=== PATIENT | male | born 1960 | race Caucasian/White ===

== ENCOUNTER 2016-09-12 11:20 | Day surgery (SDC) | payer MEDICARE, OTHER, SELFPAY ==
--- NOTE | ~2016-09-12 | EGD ---
EGD REPORT [facility] [address] [id number] NAME: SHAYLEE CEJA : 58 STATUS : REG [facility]#: [id number] AGE: 56 ADM/REG DATE : 09/12/16 MR#: [id number] REPORT SERV DATE: 09/12/16 DICTATED BY: EVAN JONES DATE: 09/12/16 REPORT STATUS : Draft [facility]ANS[facility]ED BY: [facility] DATE: 09/12/16 Pulmonology Patient Name: Shaylee Ceja Procedure Date: 09/12/2016 3:29 PM Date of : 1960 Attending MD: KEREN JONES MD Procedure Date No Time: 09/12/2016 Procedure: EBUS/NAVIGATION BRONCHOSCOPY Indications: FDG avid right hilar lesion Providers: KEREN JONES MD Referring MD: KIERAN HURD Medicines: Lidocaine 2% 20 mL Complications: No immediate complications Procedure: Pre-Anesthesia Assessment: - A History and Physical has been performed. Patient meds and allergies have been reviewed. The risks and benefits of the procedure and the sedation options and risks were discussed with the patient. All questions were answered and informed consent was obtained. Patient identification and proposed procedure were verified prior to the procedure by the physician and the nurse in the pre-procedure area in the procedure room. Mental Status Examination: alert and oriented. Airway Examination: normal oropharyngeal airway. Respiratory Examination: poor air movement. CV Examination: normal and RRR, no murmurs, no S3 or S4. ASA Grade Assessment: IV - A patient with severe systemic disease that is a constant threat to life. After reviewing the risks and benefits, the patient was deemed in satisfactory condition to undergo the procedure. The anesthesia plan was to use general anesthesia. Immediately prior to administration of medications, the patient was re-assessed for adequacy to receive sedatives. The heart rate, respiratory rate, oxygen saturations, blood pressure, adequacy of pulmonary ventilation, and response to care were monitored throughout the procedure. The physical status of the patient was re-assessed after the procedure. After obtaining informed consent, the Bronchoscope was introduced through the mouth, via the endotracheal tube (the patient was intubated for the procedure) and advanced to the tracheobronchial tree. the BF [id number] was introduced through the mouth, via the endotracheal tube (the patient was intubated for the procedure) and advanced to the tracheobronchial tree. The procedure was accomplished without difficulty. The EGD REPORT [address] [address] NAME: SHAYLEE CEJA : [birth year] STATUS : REG [facility]#: [id number] AGE: 56 ADM/REG DATE : 09/12/16 MR#: [id number] REPORT SERV DATE: 09/12/16 DICTATED BY: EVAN JONES DATE: 09/12/16 REPORT STATUS : Draft TRANSCRIBED BY: [facility] DATE: 09/12/16 patient tolerated the procedure well. Findings: The endotracheal tube is in good position. The visualized portion of the trachea is of normal caliber. The dewayne is sharp. The tracheobronchial tree was examined to at least the first subsegmental level. Patient is status post RUL lobectomy. EBUS TBNA of lymph node level 11L x 4 passes for cytology EBUS TBNA of lymph node level 7 x 4 passes for cytology Right lower lobe FDG nodule x 10 passes for cytology Using SuperDimension Edge catheter 190, peripheral probe EBUS 17s, and fluoroscopy, I performed the following biopsies: Right lower lobe FDG nodule transbronchial needle aspirates x 7 passes for cytology Right lower lobe FDG nodule transbronchial brush biopsy x 1 pass for cytology Right lower lobe FDG nodule transbronchial forcep biopsies x 7 passes for histopathology Bronchoalveolar lavage was performed in the RLL superior basal segment (B6) of the lung and sent for routine cytology. 80 mL of fluid were instilled. 20 mL were returned. The return was blood-tinged and cellular. Impression: Rapid On-Site Evaluation (SALVADOR): Preliminary cytology is POSITIVE for NON SMALL CELL LUNG CANCER, LIKELY ADENOCARCINOMA (final results are pending). Recommendation: - Await test results. - Chest X-ray. - Complete pulmonary function tests. - Refer to/consult with Thoracic Surgery. Dr. Hartman. - Refer to/consult with Oncology. - MRI of the brain with and without contrast Attending Participation: I personally performed the entire procedure. KEREN JONES MD 09/12/2016 5:41 PM This report has been signed electronically. Number of Addenda: 0 Note Initiated On: 09/12/2016 3:29 PM [address] [id number]
--- NOTE | ~2016-09-12 | CN ---
Consultation Report [place] [address] [facility] [place] [address] NAME: SHAYLEE CEJA : 58 STATUS : [facility]#: [id number] AGE: 56 ADM/REG DATE : 09/12/16 MR#: [id number] REPORT SERV DATE: 09/13/16 DICTATED BY: JOURDAN JONES DATE: 09/13/16 REPORT STATUS : Draft TRANSCRIBED BY: MODL DATE: 09/13/16 DATE OF CONSULTATION: Dear Dr. Echols and Dr. Hartman: Thank you for requesting my opinion regarding re-evaluation of Mr. Shaylee Ceja's right hilar mass, raising right hilar abnormalities including an enlarging right-sided FDG-avid nodular opacity and multiple new pulmonary nodules. Mr. Shaylee Ceja is a pleasant 56- year-old gentleman with a significant past medical history of right upper lobe lobectomy for non-small cell lung cancer in [address] Hartman and previous navigation bronchoscopy in 2014, performed by az, which was inconclusive that demonstrated atypical cells, neoplastic versus reactive, who re-presents with a repeat PET-CT scan. PET-CT scan performed on 08/20/2016 demonstrates the previous right upper lobe lobectomy and there were surgical clips in the anterior margin of the right hilum. The right hilar mass, which has been followed, has now increased in size at 24 x 47 mm and it measured 24 x 38 mm on a previous [address] scan on 12/24/2014 and 22 x 39 mm on a PET-CT scan on 07/21/2015. There was a fairly intense focus in the lower portion of the hilar mass, and the tumor seems to be protruding into the bronchus intermedius and encasing the right lower lobe and bronchus. There are at least four new pulmonary nodules. HISTORY OF PRESENT ILLNESS: Mr. Ceja reports no significant changes in his dyspnea, but he does have chronic shortness of breath, well localized to the chest, nonradiating with no significant alleviating or exacerbating factors. PAST MEDICAL HISTORY: 1. Acid reflux disease. 2. COPD. 3. Right upper lobe non-small cell lung cancer, status post lobectomy by Dr. Hartman. 4. Type 2 diabetes. 5. Emphysema. 6. Hyperlipidemia. 7. Hypertension. 8. SHAKILA. 9. Thyroid neoplasm. PAST SURGICAL HISTORY: Colonoscopy in 06/2014, previously lung biopsy in 03/2014, bronchoscopy with biopsy in 01/2014, lung surgery in 2007, and thyroidectomy in 2007. FAMILY HISTORY: Noncontributory. SOCIAL HISTORY: The patient is a previous smoker, who quit in 2007. He denies any significant alcohol or illicit drug abuse. ALLERGIES: NO KNOWN DRUG ALLERGIES. Consultation Report [address] [place]. [address] NAME: SHAYLEE CEJA : 58 STATUS : [facility]#: [id number] AGE: 56 ADM/REG DATE : 09/12/16 MR#: [id number] REPORT SERV DATE: 09/13/16 DICTATED BY: JOURDAN JONES DATE: 09/13/16 REPORT STATUS : Draft TRANSCRIBED BY: ANNE DATE: 09/13/16 HOME MEDICATIONS: Reviewed and located in the paper chart. PHYSICAL EXAMINATION: VITAL SIGNS: Reviewed and located in the paper chart. GENERAL: No acute distress. Able to communicate in full paragraphs at a time. HEENT: Normocephalic and atraumatic. Pupils equal, round, and reactive to light and accommodation. Posterior oropharynx is clear. NECK: No JVD. No LAD. Trachea midline. CARDIOVASCULAR: Regular rate and rhythm. S1 and S2 present. LUNGS: Coarse bilateral breath sounds. Diminished slightly on the right. No end- expiratory wheezes noted. ABDOMEN: Nontender, nondistended, soft. Positive bowel sounds. EXTREMITIES: No clubbing, cyanosis, or edema. SKIN: No new rashes, lesions, or ulcers. PSYCHIATRIC: Alert and oriented x3. Appropriate mood and affect. Appropriate insight and judgment. NEUROLOGIC: 5/5 strength in upper and lower extremities. Cranial nerves 2 through 12 intact. Gait not tested. DTRs not performed. IMAGING: PET-CT scan on 08/20/2016 was personally reviewed by me and I agree with the following interpretation. The patient previously underwent a right upper lobe lobectomy. There are surgical clips in the anterior margin of the right hilum. The right hilar mass has been followed, it has now increased to 24 x 47 mm and it had measured 24 x 38 mm on a previous CT scan. There is a fairly intense FDG focus in the lower portion of the hilar mass. The tumor appears to be protruding into the bronchus intermedius and encasing the right lower lobe and bronchus. The right hilar mass has shown interval enlargement. There has been associated alveolar disease and alveolar-appearing nodules that are behind the hilum, these could be inflammatory, but these could also represent other sites of metastatic disease. This PET-CT scan has been personally reviewed by me and I agree with the above interpretation. ASSESSMENT AND PLAN: Mr. Shaylee Ceja is a pleasant 56-year-old gentleman with a significant past medical history of previous non-small cell lung cancer, status post right upper lobe lobectomy by Dr. Hartman in 2007, previous bronchoscopic biopsy that demonstrated atypical cells, neoplastic versus reactive, who returns with a repeat surveillance PET-CT scan. PET-CT scan at this point demonstrates an intense area of FDG avidity in the right lower lobe proximal to the staple line. There is also the development of alveolar-appearing nodules, highly suspicious for malignant disease. At this point, Mr. Ceja mandates repeat biopsy. We did discuss in detail continued observation. However, CT-guided needle biopsy and EBUS and navigation bronchoscopy were discussed. We discussed the risks, benefits, and alternatives of each of these options. After careful review, we agreed to proceed forward with EBUS and navigation bronchoscopy. Consultation Report [address] [place]. [address] NAME: SHAYLEE CEJA : 58 STATUS : [facility] PAT#: [id number] AGE: 56 ADM/REG DATE : 09/12/16 MR#: [id number] REPORT SERV DATE: 09/13/16 DICTATED BY: JOURDAN JONES DATE: 09/13/16 REPORT STATUS : Draft TRANSCRIBED BY: ANNE DATE: 09/13/16 The patient is aware that the procedure is associated with potential life-threatening risks, including lung collapse, respiratory failure, and even . A summary of my recommendations are as follows: 1. Proceed with EBUS and navigation bronchoscopy. 2. The patient, if found to have malignant disease, will require re-evaluation by Dr. Hartman and Medical Oncology consultation with Dr. Go. Thank you for allowing me to participate in Mr. Ceja's care. RODOLFO/ANNE Jourdan Jones M.D. / [id number] CC: Jarett Hyatt Christine Marie
[~2016-09-12 11:20] MED LIST: ALBUTEROL0.083 % INH; ASAB PO; FISH-EPA1000 MG PO; GLUCPH PO; LIPITOR20 PO; NEUR300 PO; SPIRIVA INH; VITE PO
[2016-09-12 11:39] LABS: BASOPHILS 0.5 %; BASOPHILS ABSOLUTE 0.04 10/3/uL (0.0-0.16); EOSINOPHILS 1.3 %; EOSINOPHILS ABSOLUTE 0.11 10/3/uL (0.0-0.53); HEMATOCRIT 47.6 % (40.0-51.0); HEMOGLOBIN 16.5 g/dL (13.6-17.8); IMMATURE GRANULOCYTES 0.3 %; IMMATURE GRANULOCYTES ABSOLUTE 0.03 10/3/uL (0.0-0.11); LYMPHOCYTES 25.1 %; LYMPHOCYTES ABSOLUTE 2.19 10/3/uL (0.67-4.30); MEAN CORPUS HGB CONC 34.7 g/dL (32.0-36.0); MEAN CORPUSCULAR HEMOGLOB 30.5 pg (26.0-34.0); MEAN PLATELET VOLUME 10.8 fL (9.2-13.0); MONOCYTES 8.8 %; MONOCYTES ABSOLUTE 0.77 10/3/uL (0.21-1.20); PLATELET COUNT 229 10/3/uL (150-400); RBC DISTRIBUTION WIDTH 13.3 % (12.0-16.0); RED CELL COUNT 5.41 10/6/uL (4.7-6.1); WHITE BLOOD CELLS 8.7 10/3/uL (4.5-10.5)
[2016-09-12 11:40] LABS: MANUAL DIFF NO %
[2016-09-12 11:46] LABS: PARTIAL THROMBO TIME 27.5 SEC (22.5-37.2); PROTIME (NOT ORD) 13.4 SEC (12.0-14.5)
[2016-09-12 11:53] LABS: BUN (BLOOD UREA NITROGEN) 16 MG/DL (6-23); CALCIUM, SERUM 8.8 MG/DL (8.5-10.4); CHLORIDE, SERUM 109 MMOL/L (96-112); CO2 (CARBON DIOXIDE) 25 MMOL/L (24-34); CREATININE 0.92 MG/DL (0.70-1.30); GFR AFRICAN AMERICAN 107 ML/MIN (>=60); GFR NON AFRICAN AMERICAN 92 ML/MIN (>=60); GLUCOSE, SERUM 103 MG/DL (60-99); POTASSIUM, SERUM 4.5 MMOL/L (3.5-5.3); SODIUM, SERUM 142 MMOL/L (135-148)
== END 2016-09-12 21:07 | disposition home or self-care (01) ==
LOC: DMU 11:20
PROVIDERS: Internal Medicine
PROC: 07B74ZX Excision of Thorax Lymphatic, Percutaneous Endoscopic Approach, Diagnostic (ICD-10-PCS; principal; 2016-09-12 12:30)
PROC: 0B9F8ZX Drainage of Right Lower Lung Lobe, Via Natural or Artificial Opening Endoscopic, Diagnostic (ICD-10-PCS; 2016-09-12 12:30)
DX: C34.31 Malignant neoplasm of lower lobe, right bronchus or lung (principal); J44.9 Chronic obstructive pulmonary disease, unspecified; J45.909 Unspecified asthma, uncomplicated; I10 Essential (primary) hypertension; E11.9 Type 2 diabetes mellitus without complications; G47.33 Obstructive sleep apnea (adult) (pediatric); E78.5 Hyperlipidemia, unspecified; K21.9 Gastro-esophageal reflux disease without esophagitis; Z90.2 Acquired absence of lung [part of]; Z90.89 Acquired absence of other organs; Z87.891 Personal history of nicotine dependence; Z87.01 Personal history of pneumonia (recurrent); Z85.850 Personal history of malignant neoplasm of thyroid; Z79.82 Long term (current) use of aspirin; Z79.84 Long term (current) use of oral hypoglycemic drugs; Z79.899 Other long term (current) drug therapy
CPT/HCPCS: 71010; 80048; 82962; 85025; 85610; 85730; 88112; 88172; 88173; 88177; 88305; 88313; 88333; 88341; 88342; 93005; A9270-GY; C1725; J2250; J2405; J2710; J3010